=== PATIENT | male | born 1980 | race Caucasian/White ===

== ENCOUNTER → 2018-10-24 | Outpatient (CLI) | payer OTHER | END | disposition home or self-care (01) | LOC: CFH 15:29 | PROVIDERS: ATTEND Nurse Practitioner Primary Care | DX: M51.16 Intervertebral disc disorders with radiculopathy, lumbar region (principal); M47.26 Other spondylosis with radiculopathy, lumbar region | CPT/HCPCS: 72148 ==

== ENCOUNTER → 2020-03-15 | Outpatient (CLI) | payer OTHER ==
[2020-03-15 07:42] LABS: BASOPHILS # (AUTO) 0.02 x10^3/uL (0-0.1); BASOPHILS % (AUTO) 0 % (0-1); EOSINOPHILS # (AUTO) 0.18 x10^3/uL (0-0.4); EOSINOPHILS % (AUTO) 3 % (1-7); LYMPHOCYTES # (AUTO) 1.72 x10^3/uL (1-3.4); LYMPHOCYTES % (AUTO) 28 % (22-44); MD NO; MEAN CORPUSCULAR HEMOGLOBIN 31.3 pg (27.5-34.5); MEAN CORPUSCULAR HGB CONC 33.5 g/dL (33.2-36.2); MEAN CORPUSCULAR VOLUME 93.3 fL (81-97); MEAN PLATELET VOLUME 9.4 fL (7.4-10.4); MONOCYTES # (AUTO) 0.37 x10^3/uL (0.2-0.8); MONOCYTES % (AUTO) 6 % (2-9); NEUTROPHILS # (AUTO) 3.81 x10^3/uL (1.8-6.8); NEUTROPHILS % (AUTO) 63 % (42-75); PLATELET COUNT 228 x10^3/uL (130-400); RED BLOOD COUNT 5.44 x10^6/uL (4.38-5.82); RED CELL DISTRIBUTION WIDTH 12.6 % (9.4-14.8)
[2020-03-15 07:53] LABS: ALBUMIN 4.2 g/dL (3.4-5.0); ANION GAP 5 mmol/L (5-15); CALCIUM 9.4 mg/dL (8.5-10.1); CHLORIDE 109 mmol/L (98-107)
[2020-03-15 08:02] LABS: ALANINE AMINOTRANSFERASE 27 U/L (12-78); ALKALINE PHOSPHATASE 101 U/L (45-117); BILIRUBIN,TOTAL 1.1 mg/dL (0.2-1.0); CHOL/HDL RATIO 4.4; CHOLESTEROL, TOTAL 193 mg/dL (140-239); CREATININE 1.02 mg/dL (0.7-1.3); FREE T4 (FREE THYROXINE) 0.96 ng/dL (0.76-1.46); HDL CHOL % 23 % (26-37); HDL CHOLESTEROL (DIRECT) 44 mg/dL (40-60); LDL CHOLESTEROL,CALCULATED 131 mg/dL (54-169); TOTAL PROTEIN 7.5 g/dL (6.4-8.2); TRIGLYCERIDES 89 mg/dL (50-200); VLDL CHOLESTEROL 18 mg/dL (0-25)
== END | disposition home or self-care (01) ==
LOC: LAB 07:17
PROVIDERS: ATTEND Nurse Practitioner Primary Care
DX: E03.9 Hypothyroidism, unspecified (principal); E55.9 Vitamin D deficiency, unspecified; E78.5 Hyperlipidemia, unspecified
CPT/HCPCS: 36415; 80053; 80061; 82306; 84439; 84443; 84481; 85025

== ENCOUNTER → 2020-04-26 | Outpatient (CLI) | payer OTHER ==
[2020-04-26 08:02] LABS: FREE T4 (FREE THYROXINE) 1.12 ng/dL (0.76-1.46)
== END | disposition home or self-care (01) ==
LOC: LAB 07:25
PROVIDERS: ATTEND Nurse Practitioner Primary Care
DX: E03.9 Hypothyroidism, unspecified (principal)
CPT/HCPCS: 36415; 84439; 84443; 84481

== ENCOUNTER 2021-03-29 17:34 | Emergency (ER) | payer OTHER ==
[~2021-03-29] VITALS: Ht 188 cm; Wt 73.0 kg
--- NOTE | 2021-03-29 18:18 | NUR ---
ERP AT BS FOR EVAL
[2021-03-29 18:27] VITALS: BP 127/70
[2021-03-29] MEDS ORDERED: SODIUM CHLORIDE FLUSH 10ML SYR IVF ONE (18:30)
[2021-03-29] MEDS ORDERED: MORPHINE SULFATE 4 MG/ML, 1ML IVPush PRN (18:30)
[2021-03-29] MEDS ORDERED: MORPHINE SULFATE 4 MG/ML, 1ML ONE (18:31)
--- NOTE | 2021-03-29 18:39 | NUR ---
PIV PLACED, LABS DRAWN, PT MEDICATED PER EMAR. NADN/VSS. AT BS. CALL LIGHT WITHIN REACH. BED IN LOWEST POSITION, R-ANKLE ICED & ELEVATED.
--- NOTE | 2021-03-29 18:41 | NUR ---
XRAY AT BS
--- NOTE | 2021-03-29 18:46 | NUR ---
REPORT TO KIERRA BARNES
[2021-03-29 18:59] LABS: BASOPHILS % (AUTO) 0 % (0-1); EOSINOPHILS % (AUTO) 2 % (1-7); LYMPHOCYTES % (AUTO) 24 % (22-44); MEAN CORPUSCULAR HEMOGLOBIN 31.7 pg (27.5-34.5); MEAN CORPUSCULAR HGB CONC 34.5 g/dL (33.2-36.2); MEAN PLATELET VOLUME 9.8 fL (7.4-10.4); MONOCYTES % (AUTO) 5 % (2-9); NEUTROPHILS % (AUTO) 69 % (42-75); PLATELET COUNT 209 x10^3/uL (130-400); RED BLOOD COUNT 5.12 x10^6/uL (4.38-5.82)
[2021-03-29] MEDS ORDERED: PLEASE ENTER ALLERGIES MC SCH (19:00)
[2021-03-29 19:11] LABS: ANION GAP 4 mmol/L (5-15); CALCIUM 8.9 mg/dL (8.5-10.1); CHLORIDE 106 mmol/L (98-107); CREATININE 1.06 mg/dL (0.7-1.3)
[2021-03-29 19:16] LABS: TROPONIN I < 0.015 ng/mL (0.000-0.045)
--- NOTE | 2021-03-29 21:09 | NUR ---
Patient given discharge instructions and they have confirmed that they understand the instructions. Patient ambulatory with steady gait. NAD, all questions answered appropriately, denies additional needs at this time. No personal belongings left in room after discharge.
== END 2021-03-29 21:11 | disposition home or self-care (01) ==
LOC: ED 18:00
DX: S93.491A Sprain of other ligament of right ankle, initial encounter (principal); R55 Syncope and collapse; W18.30XA Fall on same level, unspecified, initial encounter; Y93.89 Activity, other specified; Y92.009 Unspecified place in unspecified non-institutional (private) residence as the place of occurrence of the external cause; Y99.8 Other external cause status
CPT/HCPCS: 36415; 71045; 73610; 80048; 82040; 82962; 84484; 85025; 93005; 96374; 99285; J2270